=== PATIENT | male | born 1975 | race Caucasian/White ===

== ENCOUNTER 2018-08-28 21:22 | Emergency (ER) | payer BC, OTHER ==
[2018-08-29] MEDS ORDERED: AMOXICILLIN TR/POT CLAVULANATE 500-125 MG TAB PO ONE (00:36)
[2018-08-29] MEDS ORDERED: LIDOCAINE 1% INJ-PF (10 MG/ML) 30 ML SDV INJ ONE (00:36)
--- NOTE | 2018-08-29 00:36 | ER Document Report ---
ED General - General Chief Complaint: Dog Bite Stated Complaint: DOG BITE Time Seen by Provider: 08/29/18 00:22 Primary Care Provider: ERNESTO RED MD [Primary Care Provider] - Follow up in 3-5 days ANDRÉS MEYER DO [ACTIVE STAFF] - Follow up in 3-5 days (hand surgery ) Notes: Patient is a 43-year-old male that presents to the emergency department for chief complaint of dog bite to the left hand. Patient states that he was bit by a neighborhood dog, thinks it was a small black dog mix., Apparently up-to-date with a rabies vaccination. He was bit in the left ring finger, with some mild bleeding, he states that he cleaned it out real well prior to coming to the emergency department. This occurred around 5:30 PM, on Wednesday. He denies any weakness with flexing of his fingers. Denies any numbness or tingling. He currently rates his pain as a 2 out of 10 describes as an aching sensation in the ring finger itself. He is right-handed. Does not recall his last tetanus vaccination. Past Medical History: CAD, hypertension Past Surgical History: PCI with stenting Social History: Denies tobacco, alcohol or drug use Family History: Reviewed and noncontributory for presenting illness Allergies: Reviewed, see documented allergy list. REVIEW OF SYSTEMS: Other than noted above, the 12 point review of systems was reviewed with the patient and were negative, all pertinent findings are included in the HPI. PHYSICAL EXAMINATION: Vital signs reviewed, nursing noted reviewed. GENERAL: Well-appearing, well-nourished and in no acute distress. HEAD: Atraumatic, normocephalic. EYES: Eyes appear normal, sclera anicteric, conjunctiva are normal. ENT: Moist mucous membranes. NECK: Normal range of motion, supple without lymphadenopathy LUNGS: Breath sounds clear to auscultation bilaterally and equal. No wheezes rales or rhonchi. HEART: Regular rate and rhythm without murmurs EXTREMITIES: Patient is noted to have a 1.5 cm laceration to the palmar aspect of the left ring finger, mild tenderness to palpation, is full-thickness, tendon appears to be intact, excellent flexion at the PIP and DIP joints, with good strength against resistance. No active bleeding. Sensation intact distally cap refill less than 3 seconds. The rest the patient's extremity exam and hand exam is unremarkable. NEUROLOGICAL: No focal neurological deficits. Moves all extremities spontaneously Motor and sensory grossly intact on exam. PSYCH: Normal mood, normal affect. SKIN: Warm, Dry, normal turgor, no rashes or lesions noted on exposed skin TRAVEL OUTSIDE OF THE [place] IN LAST 30 DAYS: No - Related Data Allergies/Adverse Reactions: No Known Allergies Allergy (Unverified 01/09/11 12:20) Past Medical History - Social History Smoking Status: Never Smoker Family History: Reviewed & Not Pertinent - Past Medical History Cardiac Medical History: Denies: Hx Heart Attack, Hx Hypertension Pulmonary Medical History: Denies: Hx Asthma Neurological Medical History: Denies: Hx Cerebrovascular Accident, Hx Seizures GI Medical History: Denies: Hx Hepatitis, Hx Hiatal Hernia, Hx Ulcer Musculoskeletal Medical History: Infectious Medical History: Denies: Hx Hepatitis Past Surgical History: Denies: Hx Open Heart Surgery, Hx Pacemaker Physical Exam - Vital signs Vitals: Temp Pulse BP Pulse Ox 97.8 F 62 144/77 H 97 08/28/18 23:44 08/28/18 23:44 08/28/18 23:44 08/28/18 23:44 Course - Re-evaluation Re-evalutation: Patient seen and examined vital signs reviewed. Patient was evaluated and treated as appropriate for the patient's presenting symptoms and complaint, with consideration of any critical or life threatening conditions that may be associated with their obtained history and exam as noted above. Patient was treated with Augmentin, and updated on tetanus vaccination, and loose approximation of the patient's wound as noted in procedure note The patient was re-evaluated and was stable, placed in a splint Evaluation was most consistent with dog bite to the left finger, with laceration, advised follow-up with hand surgery, advised to return in 8-10 days for suture removal, given Augmentin prescription for 7 days. Plan of care was discussed with the patient at this point, after careful consideration I feel that that patient can be discharged from the emergency department, the patient was educated treatments and reasons to return to the emergency department based on their presumed diagnosis as noted above, they were advised to followup with a primary care physician in 2-3 days. Patient was ag reeable to plan of care. *Note is created using voice recognition software and may contain spelling, syntax or grammatical errors. Finger X-Ray 08/29/18 00:36 IMPRESSION: No acute fracture is identified. - Vital Signs Vital signs: Temp Pulse Resp BP Pulse Ox 97.8 F 63 135/81 H 96 08/28/18 23:44 08/29/18 02:34 08/29/18 02:34 08/29/18 02:34 Procedures - Immobilization Left 4th digit Pre-Proc Neuro Vasc Exam: Normal Immobilizer type: Finger splint (Static) Performed by: PCT Post-Proc Neuro Vasc Exam: Normal Alignment checked and good: Yes - Laceration/Wound Repair Left 4th digit Wound length (cm): 1.5 Wound's Depth, Shape: Into muscle Laceration pre-procedure: Sterile PPE donned, Sterile drapes applied, Shur-Clens applied Anesthetic type: 1% Lidocaine Volume Anesthetic (mLs): 1 Wound explored: Clean Wound Debrided: Minimal Wound Repaired With: Sutures Suture Size/Type: 5:0, Nylon Number of Sutures: 2 Layer Closure?: No Post-procedure wound care: Sterile dressing applied, Splint applied Post-procedure NV exam normal: Yes Complications: No Discharge - Discharge Clinical Impression: Dog bite Qualifiers: Encounter type: initial encounter Qualified Code(s): W54.0XXA - Bitten by dog, initial encounter Finger laceration Qualifiers: Encounter type: initial encounter Finger: ring finger Damage to nail status: without damage Foreign body presence: without foreign body Laterality: left Qualified Code(s): S61.215A - Laceration without foreign body of left ring finger without damage to nail, initial encounter Condition: Stable Disposition: HOME, SELF-CARE Instructions: Laceration Care ([facility]) Additional Instructions: Please take the antibiotics as prescribed and complete the entire course, monitor for signs of infection such as pus drainage, worsening swelling or redness. Keep the splint in place over the next 2-3 days, you can remove it as needed, you can wash but do not scrub the finger, avoid excessive movements as much as possible of your finger. Please follow-up in 8-10 days, to have your stitches removed. Prescriptions: Amox Tr/Potassium Clavulanate [Augmentin 875-125 Tablet] 1 tab PO BID 7 Days #14 tablet Referrals: ERNESTO RED MD [Primary Care Provider] - Follow up in 3-5 days ANDRÉS MEYER DO [ACTIVE STAFF] - Follow up in 3-5 days (hand surgery )
[2018-08-29] MEDS ORDERED: DIPH/PERTUSS(ACELL)/TETANUS VAC/PF 0.5 ML SYR (>=10YO) IM ONE (00:48)
--- NOTE | 2018-08-29 01:30 | RADIOLOGY REPORT (SQ) ---
EXAM DESCRIPTION: XR FINGERS COMPLETED DATE/TME: 08/29/2018 00:36 CLINICAL HISTORY: 43 years Male dog bite ring finger COMPARISON: None. TECHNIQUE: Left finger, three views FINDINGS: No acute fractures or dislocations are identified. No osseous destructive lesions. No radiopaque foreign object noted. IMPRESSION: No acute fracture is identified.
[2018-08-29 02:37] VITALS: BP 135/81
== END 2018-08-29 02:37 | disposition home or self-care (01) ==
LOC: ER 21:22
DX: S61.215A Laceration without foreign body of left ring finger without damage to nail, initial encounter (principal); W54.0XXA Bitten by dog, initial encounter; Z23 Encounter for immunization
CPT/HCPCS: 99283; 90471; 73140; 90715; 12001; J3490